=== PATIENT | female | born 1980 | race Hispanic/Latino ===

== ENCOUNTER → 2018-03-03 | Outpatient (CLI) | payer BC ==
--- NOTE | 2018-03-03 12:07 | Diagnostic Imaging Report ---
ADDENDUM #1 Indication periumbilical pain Signed by: Dr. Rasheed Garay MD on 03/08/2018 1:11 PM ORIGINAL REPORT EXAM: ABDOMINAL ULTRASOUND Date: 03/03/2018 9:33 AM Indication: Comparison: None Technique: Sonographic evaluation of the abdomen. Color doppler was utilized to supplement evaluation. FINDINGS: LIVER: No focal lesion is identified. The liver measures 13 cm in the right midclavicular line. Echotexture is normal. BILIARY: The gallbladder has a normal appearance, without evidence for gallstones, gallbladder wall thickening or pericholecystic fluid. The common bile duct measures 0.2 cm. PANCREAS: The pancreas is incompletely visualized due to overlying bowel gas, but no abnormality identified involving the visualized portions of the pancreas. KIDNEYS: Right: Measures 10.9 cm in length. Left: Measures 12.1 cm in length. Other: No hydronephrosis or solid mass lesion identified. SPLEEN: No splenomegaly. PERITONEUM: No free fluid. VASCULATURE: Aorta: Visualized portions appear unremarkable. Interior vena cava: Visualized portions appear unremarkable. Portal Vein: Nondilated with hepatopedal flow. IMPRESSION: Unremarkable abdominal ultrasound. Signed by: Dr. Rasheed Garay MD on 03/03/2018 12:04 PM
--- NOTE | 2018-03-04 09:00 | Diagnostic Imaging Report ---
#[id number] - USBRELIMRT ULTRASOUND OF THE RIGHT BREAST : 03/03/2018 Comparison is made to exam dated: 03/03/2018 mammogram - [facility]. Color flow and real-time ultrasound were performed on the right breast at the area of the palpable abnormality. -There is no cystic or solid mass identified. IMPRESSION: NEGATIVE There is no sonographic evidence of malignancy. A 5 year screening mammogram is recommended. Maykel Viera Jr., D.O. cw/:03/03/2018 14:35:17 Security Rover: DANITA WESTBROOK RDAK, [facility] letter sent: Normal Exam Ultrasound BI-RADS: 1 Negative
--- NOTE | 2018-03-04 09:00 | Diagnostic Imaging Report ---
#[id number] - USBRELIMLT ULTRASOUND OF THE LEFT BREAST : 03/03/2018 Comparison is made to exam dated: 03/03/2018 mammogram - [facility]. Color flow and real-time ultrasound were performed on the left breast in the region of the palpable abnormality. -No cystic or solid mass is identified. -In the axilla there are several lymph nodes appearing morphologically normal with the largest measuring 1.1 x 0.7 x 0.7 cm. IMPRESSION: BENIGN There is no sonographic evidence of malignancy. A 5 year screening mammogram is recommended. Maykel Viera Jr., D.O. cw/:03/03/2018 14:39:15 Crusher Setter: DANITA WESTBROOK RDMS, [facility] letter sent: Normal Exam Ultrasound BI-RADS: 2 Benign
--- NOTE | 2018-03-04 09:00 | Diagnostic Imaging Report ---
#[id number] - [id number] #BILATERAL FIRST EVER DIGITAL DIAGNOSTIC MAMMOGRAM WITH CAD: 03/03/2018 No prior exams were available for comparison. Current study contains 6 films. The tissue of both breasts is heterogeneously dense. This may lower the sensitivity of mammography. Current study was also evaluated with a Computer Aided Detection (CAD) system. There is a benign calcification in the left breast. Palpable mass markers are present on each breast without evidence of an adjacent mass. Limited ultrasound adjacent to the markers will follow this examination. No significant masses, calcifications, or other findings are seen in either breast. IMPRESSION: BENIGN There is no mammographic evidence of malignancy. A 5 year screening mammogram is recommended. The patient was notified of the results of this study. Maykel Viera Jr., D.O. cw/:03/03/2018 12:17:30 Health Care Sanitary Technician: Bessie CADET)([place]), [facility] letter sent: Normal Exam Mammogram BI-RADS: 2 Benign
== END ==
LOC: MAMMO 09:19
PROVIDERS: ATTEND Internal Medicine
DX: N63.20 Unspecified lump in the left breast, unspecified quadrant (principal); N63.10 Unspecified lump in the right breast, unspecified quadrant; R10.33 Periumbilical pain
CPT/HCPCS: 76700; 77066

== ENCOUNTER 2021-02-03 09:50 | Emergency (ER) | payer BC ==
[~2021-02-03] VITALS: Ht 157.5 cm; Wt 77.1 kg
[~2021-02-03 09:50] MED LIST: MACROBID 100 M100 MG PO
[2021-02-03] MEDS ORDERED: KETOROLAC TROMETHAMINE 30 MG/ML VIAL IV STA (10:07)
[2021-02-03] MEDS ORDERED: ACETAMINOPHEN 325 MG TAB PO STA (10:07)
[2021-02-03] MEDS ORDERED: ONDANSETRON HCL INJ 2MG/ML 2ML 2 MG/ML VIAL IV STA (10:07)
[2021-02-03] MEDS ORDERED: SODIUM CHLORIDE 0.9% 1000ML 1,000 ML IV SCH (10:15)
[2021-02-03] MEDS ORDERED: ACETAMINOPHEN 325 MG TAB PO ONE (10:30)
[2021-02-03] MEDS ORDERED: FAMOTIDINE 20 MG/2 ML VIAL IV STA (10:35)
[2021-02-03] MEDS ORDERED: KETOROLAC TROMETHAMINE 60 MG/2 ML VIAL IM ONE (11:00)
[2021-02-03] MEDS ORDERED: DEXAMETHASONE SOD PHOS INJ 4 MG/ML SDV IV ONE (11:30)
[2021-02-03] MEDS ORDERED: VENTOLIN HFA18 GM INH (11:53)
[2021-02-03] MEDS ORDERED: PREDNISONE20 MG PO (11:53)
[2021-02-03] MEDS ORDERED: ONDANSETRON ODT4 MG PO (11:53)
[2021-02-03] MEDS ORDERED: AZITHROMYCIN250 MG PO (11:53)
[2021-02-03 12:46] VITALS: BP 126/72
== END 2021-02-03 12:49 | disposition home or self-care (01) ==
LOC: FSED 09:56
DX: U07.1 COVID-19 (principal); J06.9 Acute upper respiratory infection, unspecified; R11.2 Nausea with vomiting, unspecified; E86.0 Dehydration
CPT/HCPCS: 71045; 99283

== ENCOUNTER → 2021-02-04 | Emergency (ER) | payer BC ==
[~2021-02-04] VITALS: Ht 157.5 cm; Wt 77.1 kg
[~2021-02-04] MED LIST changes: +ACETAMINOPHEN/CODEINE 300MG - 30MG TAB ONE; +ACETAMINOPHEN/CODEINE 300MG - 30MG TAB PO ONE; +AZITHROMYCIN250 MG PO; +CASIRIVIMAB/IMDEVIMAB 10 ML in SODIUM CHLORIDE 0.9% 100 ML IV ONE; +IOPAMIDOL 370 MG/ML 200 ML INFUS..BTL INJ ONE; +ONDANSETRON ODT4 MG PO; +PREDNISONE20 MG PO; +SODIUM CHLORIDE 0.9% 100 ML ONE; +SODIUM CHLORIDE 0.9% 50ML 50 ML ONE; +VENTOLIN HFA18 GM INH
== END | disposition home or self-care (01) ==
LOC: ER 18:46
DX: U07.1 COVID-19 (principal); R06.02 Shortness of breath; R05 Cough
CPT/HCPCS: 99283; J7050; Q9967

== ENCOUNTER 2021-02-07 05:26 | Inpatient (IN) | payer BC ==
[~2021-02-07] VITALS: Ht 157.5 cm; Wt 77.1 kg
[~2021-02-07 05:26] MED LIST changes: -ACETAMINOPHEN/CODEINE 300MG - 30MG TAB ONE; -ACETAMINOPHEN/CODEINE 300MG - 30MG TAB PO ONE; -CASIRIVIMAB/IMDEVIMAB 10 ML in SODIUM CHLORIDE 0.9% 100 ML IV ONE; -IOPAMIDOL 370 MG/ML 200 ML INFUS..BTL INJ ONE; -SODIUM CHLORIDE 0.9% 100 ML ONE; -SODIUM CHLORIDE 0.9% 50ML 50 ML ONE
[2021-02-07] MEDS ORDERED: DEXAMETHASONE SOD PHOS INJ 4 MG/ML SDV IV ONE (05:30)
[2021-02-07] MEDS ORDERED: SODIUM CHLORIDE 0.9% 1000ML 1,000 ML IV SCH (05:45)
[2021-02-07 05:50] LABS: BASOPHILS % 0.1 % (0.0-1.0); EOSINOPHILS % 0.1 % (0.0-6.0); HEMATOCRIT 43.2 % (34.2-44.1); HEMOGLOBIN 14.2 g/dL (12.0-16.0); LYMPHOCYTES # (AUTO) 1.5 (1.0-3.2); LYMPHOCYTES % 16.5 % (18.0-39.1); MEAN CORPUSCULAR HEMOGLOBIN 31.6 pg (28-32); MEAN CORPUSCULAR HGB CONC 32.9 g/dL (31-35); MEAN CORPUSCULAR VOLUME 96.2 fL (81-99); MONOCYTES # (AUTO) 0.6 (0.2-0.8); MONOCYTES % 6.3 % (4.4-11.3); NEUTROPHILS # (AUTO) 6.8 (2.1-6.9); NEUTROPHILS % 76.4 % (38.7-80.0); PLATELET COUNT 320 x10e3/uL (140-360); RED BLOOD COUNT 4.49 x10e6/uL (3.6-5.1); RED CELL DISTRIBUTION WIDTH 12.4 % (11.7-14.4)
[2021-02-07 06:21] LABS: ALBUMIN 3.4 g/dL (3.5-5.0); ALBUMIN/GLOBULIN RATIO 0.8 (0.8-2.0); CALCIUM 8.7 mg/dL (8.4-10.2); CREATININE, SERUM 0.69 mg/dL (0.57-1.11)
[2021-02-07 12:08] VITALS: BP 104/66
[2021-02-07 12:12] VITALS: BP 104/66
[2021-02-07] MEDS: CEFTRIAXONE 2 GM in SODIUM CHLORIDE 0.9% 100 ML IV SCH (15:55)
[2021-02-07] MEDS ORDERED: REMDESIVIR 200MG 200 MG in SODIUM CHLORIDE 0.9% 100 ML IV ONE (16:00)
[2021-02-07 16:58] VITALS: BP 118/75
[2021-02-07] MEDS: ENOXAPARIN 30 MG/0.3 ML SYR SC SCH (18:13)
[2021-02-07] MEDS: ASCORBIC ACID 500 MG TAB PO SCH (18:13)
[2021-02-07 20:00] VITALS: BP 112/75
[2021-02-07 20:03] VITALS: BP 112/75
[2021-02-08] VITALS (8 sets, daily range): BP systolic 104–120; BP diastolic 68–83
[2021-02-08] MEDS: DEXAMETHASONE 4 MG TAB PO SCH (05:30)
[2021-02-08 05:31] LABS: BASOPHILS % 0.1 % (0.0-1.0); EOSINOPHILS % 0.1 % (0.0-6.0); HEMATOCRIT 38.7 % (34.2-44.1); HEMOGLOBIN 12.4 g/dL (12.0-16.0); LYMPHOCYTES # (AUTO) 1.5 (1.0-3.2); LYMPHOCYTES % 18.7 % (18.0-39.1); MEAN CORPUSCULAR HEMOGLOBIN 30.6 pg (28-32); MEAN CORPUSCULAR VOLUME 95.6 fL (81-99); MONOCYTES # (AUTO) 0.5 (0.2-0.8); MONOCYTES % 6.4 % (4.4-11.3); NEUTROPHILS # (AUTO) 5.9 (2.1-6.9); NEUTROPHILS % 73.8 % (38.7-80.0); PLATELET COUNT 372 x10e3/uL (140-360); RED BLOOD COUNT 4.05 x10e6/uL (3.6-5.1); RED CELL DISTRIBUTION WIDTH 12.3 % (11.7-14.4)
[2021-02-08 06:00] LABS: CLARITY,URINE SL CLOUDY (CLEAR); COLOR,URINE YELLOW (YELLOW); KETONES,URINE 2+ (NEGATIVE); LEUKOCYTE ESTERASE ,URINE NEGATIVE (NEGATIVE); NITRITE,URINE NEGATIVE (NEGATIVE); PROTEIN,URINE DIPSTICK 1+ (NEGATIVE)
[2021-02-08 06:06] LABS: POTASSIUM 4.2 mmol/L (3.5-5.1)
[2021-02-08] MEDS: DEXAMETHASONE SOD PHOS 10 MG/1 ML VIAL IV SCH (06:06)
[2021-02-08 06:07] LABS: ALBUMIN/GLOBULIN RATIO 0.7 (0.8-2.0); ANION GAP 15.2 mmol/L (8-16); CALCIUM 8.9 mg/dL (8.4-10.2); CHOL/HDL RATIO 5.6 (3.0-3.6); CREATININE, SERUM 0.65 mg/dL (0.57-1.11)
[2021-02-08 06:19] LABS: BACTERIA,URINE MODERATE /HPF; EPITHELIAL CELLS,URINE MANY /LPF; RBC,URINE 0-5 /HPF (0-5); WBC,URINE (MAN) 0-5 /HPF (0-5)
[2021-02-08 06:30] LABS: THYROID STIMULATING HORMONE 0.154 uIU/mL (0.350-4.940)
[2021-02-08] MEDS ORDERED: DEXAMETHASONE SOD PHOS 10 MG/1 ML VIAL IV SCH (09:00)
[2021-02-08] MEDS: ASCORBIC ACID 500 MG TAB PO SCH ×2 (09:00→18:25)
[2021-02-08] MEDS: ZINC SULFATE 50 MG CAP PO SCH (09:00)
[2021-02-08] MEDS: ENOXAPARIN 30 MG/0.3 ML SYR SC SCH ×2 (09:17→18:25)
[2021-02-08] MEDS ORDERED: Vancomycin IV 1 GM in SODIUM CHLORIDE 0.9% 250ML 250 ML IV SCH ×2 (13:00→21:00)
[2021-02-08] MEDS ORDERED: SODIUM CHLORIDE 0.9% 250ML 250 ML ONE ×2 (15:16→20:01)
[2021-02-08] MEDS: REMDESIVIR 100MG 100 MG in SODIUM CHLORIDE 0.9% 100 ML IV SCH (17:37)
[2021-02-08] MEDS: CEFTRIAXONE 2 GM in SODIUM CHLORIDE 0.9% 100 ML IV SCH (18:25)
[2021-02-09] VITALS: BP 109/67
[2021-02-09 04:00] VITALS: BP 103/65
[2021-02-09] MEDS ORDERED: Vancomycin IV 1 GM in SODIUM CHLORIDE 0.9% 250ML 250 ML IV SCH (05:00)
[2021-02-09] MEDS: DEXAMETHASONE SOD PHOS 10 MG/1 ML VIAL IV SCH (05:16)
[2021-02-09] MEDS: DEXAMETHASONE 4 MG TAB PO SCH (05:16)
[2021-02-09 07:42] VITALS: BP 102/67
[2021-02-09 07:45] VITALS: BP 102/67
[2021-02-09] MEDS: ASCORBIC ACID 500 MG TAB PO SCH ×2 (09:00→16:48)
[2021-02-09] MEDS: ZINC SULFATE 50 MG CAP PO SCH (09:00)
[2021-02-09] MEDS: ENOXAPARIN 30 MG/0.3 ML SYR SC SCH ×2 (09:00→16:48)
[2021-02-09 12:00] VITALS: BP 112/74
[2021-02-09] MEDS: CEFTRIAXONE 2 GM in SODIUM CHLORIDE 0.9% 100 ML IV SCH (15:37)
[2021-02-09] MEDS: REMDESIVIR 100MG 100 MG in SODIUM CHLORIDE 0.9% 100 ML IV SCH (15:42)
[2021-02-09 20:00] VITALS: BP 108/72
[2021-02-10] VITALS (9 sets, daily range): BP systolic 100–109; BP diastolic 62–74
[2021-02-10] MEDS: DEXAMETHASONE 4 MG TAB PO SCH (05:30)
[2021-02-10 06:56] LABS: BASOPHILS % 0.2 % (0.0-1.0); EOSINOPHILS # (AUTO) 0.2 (0.0-0.4); EOSINOPHILS % 2.3 % (0.0-6.0); HEMATOCRIT 38.7 % (34.2-44.1); HEMOGLOBIN 12.8 g/dL (12.0-16.0); LYMPHOCYTES # (AUTO) 1.7 (1.0-3.2); LYMPHOCYTES % 26.2 % (18.0-39.1); MEAN CORPUSCULAR HEMOGLOBIN 31.3 pg (28-32); MEAN CORPUSCULAR HGB CONC 33.1 g/dL (31-35); MEAN CORPUSCULAR VOLUME 94.6 fL (81-99); MONOCYTES # (AUTO) 0.8 (0.2-0.8); MONOCYTES % 12.7 % (4.4-11.3); NEUTROPHILS # (AUTO) 3.8 (2.1-6.9); NEUTROPHILS % 56.9 % (38.7-80.0); PLATELET COUNT 495 x10e3/uL (140-360); RED BLOOD COUNT 4.09 x10e6/uL (3.6-5.1); RED CELL DISTRIBUTION WIDTH 12.1 % (11.7-14.4)
[2021-02-10 07:04] LABS: ALBUMIN 2.9 g/dL (3.5-5.0); ALBUMIN/GLOBULIN RATIO 0.8 (0.8-2.0); ANION GAP 14.8 mmol/L (8-16); CALCIUM 8.8 mg/dL (8.4-10.2); CREATININE, SERUM 0.57 mg/dL (0.57-1.11); POTASSIUM 3.8 mmol/L (3.5-5.1)
[2021-02-10] MEDS: DEXAMETHASONE SOD PHOS 10 MG/1 ML VIAL IV SCH (08:21)
[2021-02-10] MEDS: ASCORBIC ACID 500 MG TAB PO SCH ×2 (08:21→17:24)
[2021-02-10] MEDS: ZINC SULFATE 50 MG CAP PO SCH (08:22)
[2021-02-10] MEDS: ENOXAPARIN 30 MG/0.3 ML SYR SC SCH ×2 (08:22→17:24)
[2021-02-10] MEDS: REMDESIVIR 100MG 100 MG in SODIUM CHLORIDE 0.9% 100 ML IV SCH (13:20)
[2021-02-10] MEDS ORDERED: SODIUM CHLORIDE 0.9% 100 ML ONE (13:25)
[2021-02-10] MEDS: CEFTRIAXONE 2 GM in SODIUM CHLORIDE 0.9% 100 ML IV SCH (15:06)
[2021-02-11] VITALS: BP 103/82
[2021-02-11 04:00] VITALS: BP 101/70
[2021-02-11] MEDS: DEXAMETHASONE SOD PHOS 10 MG/1 ML VIAL IV SCH (05:30)
[2021-02-11] MEDS: DEXAMETHASONE 4 MG TAB PO SCH (05:53)
[2021-02-11 06:36] LABS: BASOPHILS % 0.3 % (0.0-1.0); EOSINOPHILS # (AUTO) 0.1 (0.0-0.4); EOSINOPHILS % 0.8 % (0.0-6.0); HEMATOCRIT 38.6 % (34.2-44.1); HEMOGLOBIN 12.9 g/dL (12.0-16.0); LYMPHOCYTES # (AUTO) 1.3 (1.0-3.2); MEAN CORPUSCULAR HGB CONC 33.4 g/dL (31-35); MEAN CORPUSCULAR VOLUME 92.8 fL (81-99); MONOCYTES # (AUTO) 0.9 (0.2-0.8); MONOCYTES % 11.7 % (4.4-11.3); NEUTROPHILS % 67.4 % (38.7-80.0); PLATELET COUNT 561 x10e3/uL (140-360); RED BLOOD COUNT 4.16 x10e6/uL (3.6-5.1)
[2021-02-11 06:50] LABS: ANION GAP 14.5 mmol/L (8-16); CALCIUM 9.1 mg/dL (8.4-10.2); CREATININE, SERUM 0.63 mg/dL (0.57-1.11)
[2021-02-11 07:38] LABS: POTASSIUM 5.5 mmol/L (3.5-5.1)
[2021-02-11 07:45] VITALS: BP 98/74
[2021-02-11] MEDS: ENOXAPARIN 30 MG/0.3 ML SYR SC SCH ×2 (08:32→16:18)
[2021-02-11] MEDS: ZINC SULFATE 50 MG CAP PO SCH (08:32)
[2021-02-11] MEDS: ASCORBIC ACID 500 MG TAB PO SCH ×2 (08:32→16:18)
[2021-02-11 09:33] VITALS: BP 98/74
[2021-02-11 11:16] VITALS: BP 98/54
[2021-02-11] MEDS ORDERED: SOD POLYSTYRENE SULFONATE SUSP 15 GM/60 ML BTL PO ONE (11:30)
[2021-02-11] MEDS: REMDESIVIR 100MG 100 MG in SODIUM CHLORIDE 0.9% 100 ML IV SCH (14:20)
[2021-02-11] MEDS ORDERED: ASPIRIN81 MG PO (14:52)
[2021-02-11 15:49] VITALS: BP 98/61
[2021-02-11] MEDS ORDERED: DECADRON4 M1 PO (16:11)
== END 2021-02-11 18:02 | disposition home or self-care (01) | DRG 177 ==
LOC: ER 05:30 → ERHOLD 08:55 → MED/SURG3 10:43 → IMCU 02-09 15:03
PROVIDERS: ADMIT Internal Medicine; ATTEND Internal Medicine
PROC: XW033E5 Introduction of Remdesivir Anti-infective into Peripheral Vein, Percutaneous Approach, New Technology Group 5 (ICD-10-PCS; 2021-02-07)
PROC: 8E0ZXY6 Isolation (ICD-10-PCS; 2021-02-07)
PROC: 3E0333Z Introduction of Anti-inflammatory into Peripheral Vein, Percutaneous Approach (ICD-10-PCS; principal; 2021-02-08)
DX: U07.1 COVID-19 (principal); J96.01 Acute respiratory failure with hypoxia; J12.82 Pneumonia due to coronavirus disease 2019; B17.8 Other specified acute viral hepatitis; E87.5 Hyperkalemia
CPT/HCPCS: 36415; 71045; 71260; 76705; 80048; 80053; 80061; 80202; 81001; 83036; 84132; 84443; 84702; 85025; 85379; 87040; 87071; 87205; 99284; J0456; J0696; J1100; J1650; J3370; J7030; J7050; U0002

== ENCOUNTER → 2021-02-19 | Outpatient (CLI) | payer BC ==
[~2021-02-19] MED LIST changes: +ASPIRIN81 MG PO; +DECADRON4 M1 PO
== END ==
LOC: RAD 10:50
PROVIDERS: ATTEND Internal Medicine
DX: U07.1 COVID-19 (principal); J12.82 Pneumonia due to coronavirus disease 2019
CPT/HCPCS: 71046

== ENCOUNTER → 2021-03-22 | Outpatient (CLI) | payer BC | LOC: CT 09:44 | PROVIDERS: ATTEND Internal Medicine | DX: R51.9 Headache, unspecified (principal); S23.9XXA Sprain of unspecified parts of thorax, initial encounter | CPT/HCPCS: 70450; 72072; 72110; 81025 ==

== ENCOUNTER → 2021-04-11 | Outpatient (CLI) | payer BC | LOC: MRI 12:40 | PROVIDERS: ATTEND Internal Medicine | DX: M51.26 Other intervertebral disc displacement, lumbar region (principal); M50.00 Cervical disc disorder with myelopathy, unspecified cervical region; M51.24 Other intervertebral disc displacement, thoracic region | CPT/HCPCS: 72141; 72146; 72148 ==

== ENCOUNTER → 2021-04-22 | Outpatient (CLI) | payer BC | LOC: RAD 07:50 | PROVIDERS: ATTEND Internal Medicine | DX: M17.0 Bilateral primary osteoarthritis of knee (principal) ==

== ENCOUNTER 2021-08-02 12:44 | Emergency (ER) | payer BC ==
[~2021-08-02] VITALS: Ht 157.5 cm; Wt 84.5 kg
[2021-08-02] MEDS ORDERED: ONDANSETRON HCL INJ 2MG/ML 2ML 2 MG/ML VIAL IV STA (14:06)
[2021-08-02] MEDS ORDERED: KETOROLAC TROMETHAMINE 30 MG/ML VIAL IV STA (14:07)
[2021-08-02] MEDS ORDERED: SODIUM CHLORIDE 0.9% 1000ML 1,000 ML IV SCH (14:15)
[2021-08-02] MEDS ORDERED: VENTOLIN HFA18 GM INH (16:45)
[2021-08-02] MEDS ORDERED: AZITHROMYCIN250 MG PO (16:46)
[2021-08-02] MEDS ORDERED: NAPROSYN500 MG PO (16:47)
[2021-08-02] MEDS ORDERED: ONDANSETRON ODT4 MG PO (16:47)
[2021-08-02] MEDS ORDERED: DEXAMETHASONE6 MG PO (17:20)
== END 2021-08-02 18:02 | disposition home or self-care (01) ==
LOC: FSED 12:56
DX: U07.1 COVID-19 (principal); J20.9 Acute bronchitis, unspecified; R06.00 Dyspnea, unspecified; R11.2 Nausea with vomiting, unspecified; R05.9 Cough, unspecified
CPT/HCPCS: 71046; 99283; J1885; J2405; J7030; U0002